=== PATIENT | male | born 1975 | race Caucasian/White ===

== ENCOUNTER 2018-03-21 17:08 | Emergency (ER) | payer BC ==
[2018-03-21] MEDS ORDERED: LISI-362 PO (17:16)
[2018-03-21] MEDS ORDERED: LORA10CA3 PO (17:16)
[2018-03-21] MEDS ORDERED: MONT10TA PO (17:16)
--- NOTE | 2018-03-21 17:18 | ER Report ---
History and Physical Time Seen By MD: 17:18 Hx. of Stated Complaint: RT SIDE PAIN, MOSTLY FLANK BUT SOME ABDOMINAL PAIN. HX OF KIDNEY STONES. STATES THIS ONE DOES NOT FEEL LIKE THE OTHER STONES HPI/ROS CHIEF COMPLAINT: Right-sided abdominal pain HISTORY OF PRESENT ILLNESS: 43-year-old male patient presents to emergency room with complaint of right-sided abdominal pain. Patient states this been going on for the last several days. He states that it seemed to start in back. He states that the pain with then migrates to the right lower quadrant. He states that sometimes it has started the right lower quadrant and migrated to the back. Patient denies having any fevers, chills. Patient states that he is had kidney stones in the past, but this does feel different. He states she's not had any abdominal surgeries and does have his appendix and gallbladder. Patient states he's been able to eat and drink without any difficulties. Patient states he's not had anything to eat today. He has not taken any medication for this. He currently rates his pain an 8-9 out of 10. REVIEW OF SYSTEMS: Respiratory: No cough, no dyspnea. Cardiovascular: No chest pain, no palpitations. Gastrointestinal: As noted above Musculoskeletal: No back pain. Allergies: Coded Allergies: No Known Drug Allergies (Unverified , 03/21/18) Home Meds Active Scripts Tramadol Hcl (TRAMADOL HCL) 50 Mg Tablet, 50 MG PO Q4-6H Y for PAIN, #14 TAB Prov:CINDA HORAN [employer] 03/21/18 Reported Medications Loratadine (CLARITIN) 10 Mg Capsule, 10 MG PO, CAPSULE 03/21/18 Montelukast Sodium (SINGULAIR) 10 Mg Tablet, 1 TAB PO QDAY, TAB 03/21/18 Lisinopril (LISINOPRIL) 10 Mg Tablet, 10 MG PO QDAY, TAB 03/21/18 Past Medical/Surgical History Patient has a past medical history of hypertension, asthma, frequent kidney stones. Patient denies any surgical history. Reviewed Nurses Notes: Yes Constitutional Vital Sign - Last 24 Hours 03/21/18 03/21/18 03/21/18 03/21/18 17:08 17:11 17:14 17:23 Temp 98.2 Pulse ??? 99 83 Resp 14 B/P (MAP) 143/93 145/93 (110) Pulse Ox 90 91 95 O2 Delivery Room Air 03/21/18 03/21/18 03/21/18 03/21/18 17:30 17:38 17:45 17:53 Pulse 91 65 B/P (MAP) 138/94 (109) 127/74 (91) Pulse Ox 95 94 03/21/18 03/21/18 03/21/18 03/21/18 18:00 18:08 18:13 18:15 Pulse ? B/P (MAP) ???/??? (1665) 121/75 (90) 03/21/18 03/21/18 03/21/18 03/21/18 18:28 18:30 18:43 18:45 Pulse 66 61 B/P (MAP) 124/76 (92) 127/78 (94) Pulse Ox 98 96 03/21/18 03/21/18 03/21/18 03/21/18 18:50 19:00 19:05 19:15 Pulse 59 66 B/P (MAP) 128/88 (101) 130/93 (105) Pulse Ox 97 99 03/21/18 19:20 Pulse ??? Intake and Output 03/21/18 03/21/18 03/22/18 14:59 22:59 06:59 Intake Total 1000 ml Balance 1000 ml Physical Exam General Appearance: The patient is alert, has no immediate need for airway protection and no current signs of toxicity. Respiratory: Chest is non tender, lungs are clear to auscultation. Cardiac: regular rate and rhythm Gastrointestinal: Abdomen is soft and tender in the right lower quadrant, no masses, bowel sounds normal. Musculoskeletal: Neck: Neck is supple and non tender. Extremities have full range of motion and are non tender. Skin: No rashes or lesions. DIFFERENTIAL DIAGNOSIS: After history and physical exam differential diagnosis was considered for abdominal pain including but not limited to appendicitis, cholecystitis, gastritis and urinary tract infection. Medical Decision Making Data Points Result Diagram: 03/21/18 1727 03/21/18 1727 Laboratory Hematology Test 03/21/18 13:15 03/21/18 17:27 Urine Color Yellow Urine Clarity Clear Urine pH 6.0 pH (4.8-9.5) Urine Specific [place] 1.021 Urine Protein Negative mg/dL (NEGATIVE) Urine Glucose (UA) Negative mg/dL (NEGATIVE) Urine Ketones Negative mg/dL (NEGATIVE) Urine Blood Negative (NEGATIVE) Urine Nitrite Negative (NEGATIVE) Urine Bilirubin Negative (NEGATIVE) Urine Urobilinogen 2.0 mg/dL (0.2-1.9) Urine Leukocyte Esterase Negative (NEGATIVE) Urine RBC None /HPF (0-2/HPF) Urine WBC 1 /HPF (0-5/HPF) Urine Squamous Epithelial Cells Few /LPF (</=FEW) Urine Bacteria Negative /HPF (NONE-FEW) Urine Mucus None /HPF (NONE-FEW) Red Blood Count 5.67 M/uL (4.00-5.60) Mean Corpuscular Volume 92.1 fL (80.0-96.0) Mean Corpuscular Hemoglobin 33.6 pg (26.0-33.0) Mean Corpuscular Hemoglobin Concent 36.5 g/dL (32.0-36.0) Red Cell Distribution Width 12.9 % (11.5-14.5) Mean Platelet Volume 8.9 fL (7.2-11.1) Neutrophils (%) (Auto) 58.8 % (39.4-72.5) Lymphocytes (%) (Auto) 28.1 % (17.6-49.6) Monocytes (%) (Auto) 8.6 % (4.1-12.4) Eosinophils (%) (Auto) 3.6 % (0.4-6.7) Basophils (%) (Auto) 0.9 % (0.3-1.4) Nucleated RBC Relative Count (auto) 0.1 /100WBC Neutrophils # (Auto) 5.4 K/uL (2.0-7.4) Lymphocytes # (Auto) 2.6 K/uL (1.3-3.6) Monocytes # (Auto) 0.8 K/uL (0.3-1.0) Eosinophils # (Auto) 0.3 K/uL (0.0-0.5) Basophils # (Auto) 0.1 K/uL (0.0-0.1) Nucleated RBC Absolute Count (auto) 0.00 K/uL Sodium Level 138 mmol/L (137-145) Potassium Level 3.9 mmol/L (3.5-5.0) Chloride Level 98 mmol/L (98-107) Carbon Dioxide Level 31 mmol/L (22-30) Blood Urea Nitrogen 16 mg/dl (9-21) Creatinine 1.10 mg/dl (0.66-1.25) Glomerular Filtration Rate Calc > 60.0 Random Glucose 101 mg/dl (75-110) Calcium Level 9.7 mg/dl (8.4-10.2) Total Bilirubin 0.6 mg/dl (0.2-1.3) Aspartate Amino Transf (AST/SGOT) 36 U/L (0-35) Alanine Aminotransferase (ALT/SGPT) 72 U/L (0-56) Alkaline Phosphatase 77 U/L (0-126) Total Protein 6.0 gm/dl (6.3-8.2) Albumin 4.2 g/dl (3.5-5.0) Amylase Level 76 U/L (0-110) Lipase 66 U/L (23-300) Chemistry Test 03/21/18 13:15 03/21/18 17:27 Urine Color Yellow Urine Clarity Clear Urine pH 6.0 pH (4.8-9.5) Urine Specific [place] 1.021 Urine Protein Negative mg/dL (NEGATIVE) Urine Glucose (UA) Negative mg/dL (NEGATIVE) Urine Ketones Negative mg/dL (NEGATIVE) Urine Blood Negative (NEGATIVE) Urine Nitrite Negative (NEGATIVE) Urine Bilirubin Negative (NEGATIVE) Urine Urobilinogen 2.0 mg/dL (0.2-1.9) Urine Leukocyte Esterase Negative (NEGATIVE) Urine RBC None /HPF (0-2/HPF) Urine WBC 1 /HPF (0-5/HPF) Urine Squamous Epithelial Cells Few /LPF (</=FEW) Urine Bacteria Negative /HPF (NONE-FEW) Urine Mucus None /HPF (NONE-FEW) White Blood Count 9.2 k/uL (4.5-11.0) Red Blood Count 5.67 M/uL (4.00-5.60) Hemoglobin 19.1 g/dL (14.0-18.0) Hematocrit 52.2 % (42.0-52.0) Mean Corpuscular Volume 92.1 fL (80.0-96.0) Mean Corpuscular Hemoglobin 33.6 pg (26.0-33.0) Mean Corpuscular Hemoglobin Concent 36.5 g/dL (32.0-36.0) Red Cell Distribution Width 12.9 % (11.5-14.5) Platelet Count 251 K/uL (150-450) Mean Platelet Volume 8.9 fL (7.2-11.1) Neutrophils (%) (Auto) 58.8 % (39.4-72.5) Lymphocytes (%) (Auto) 28.1 % (17.6-49.6) Monocytes (%) (Auto) 8.6 % (4.1-12.4) Eosinophils (%) (Auto) 3.6 % (0.4-6.7) Basophils (%) (Auto) 0.9 % (0.3-1.4) Nucleated RBC Relative Count (auto) 0.1 /100WBC Neutrophils # (Auto) 5.4 K/uL (2.0-7.4) Lymphocytes # (Auto) 2.6 K/uL (1.3-3.6) Monocytes # (Auto) 0.8 K/uL (0.3-1.0) Eosinophils # (Auto) 0.3 K/uL (0.0-0.5) Basophils # (Auto) 0.1 K/uL (0.0-0.1) Nucleated RBC Absolute Count (auto) 0.00 K/uL Glomerular Filtration Rate Calc > 60.0 Calcium Level 9.7 mg/dl (8.4-10.2) Total Bilirubin 0.6 mg/dl (0.2-1.3) Aspartate Amino Transf (AST/SGOT) 36 U/L (0-35) Alanine Aminotransferase (ALT/SGPT) 72 U/L (0-56) Alkaline Phosphatase 77 U/L (0-126) Total Protein 6.0 gm/dl (6.3-8.2) Albumin 4.2 g/dl (3.5-5.0) Amylase Level 76 U/L (0-110) Lipase 66 U/L (23-300) Urinalysis Test 03/21/18 13:15 Urine Color Yellow Urine Clarity Clear Urine pH 6.0 pH (4.8-9.5) Urine Specific [place] 1.021 Urine Protein Negative mg/dL (NEGATIVE) Urine Glucose (UA) Negative mg/dL (NEGATIVE) Urine Ketones Negative mg/dL (NEGATIVE) Urine Blood Negative (NEGATIVE) Urine Nitrite Negative (NEGATIVE) Urine Bilirubin Negative (NEGATIVE) Urine Urobilinogen 2.0 mg/dL (0.2-1.9) Urine Leukocyte Esterase Negative (NEGATIVE) Urine RBC None /HPF (0-2/HPF) Urine WBC 1 /HPF (0-5/HPF) Urine Squamous Epithelial Cells Few /LPF (</=FEW) Urine Bacteria Negative /HPF (NONE-FEW) Urine Mucus None /HPF (NONE-FEW) EKG/Imaging Imaging EXAMINATION: CT abdomen and pelvis with contrast COMPARISON: None. HISTORY: abdominal pain PROCEDURE: Multiplanar contrast enhanced CT of the abdomen and pelvis with 100 mL intravenous Isovue 370. One of the following dose optimization techniques was utilized in the performance of this exam: Automated exposure control; adjustment of the mA and/or kV according to the patient's size; or use of an iterative reconstruction technique. Specific details can be referenced in the facility's radiology CT exam operational policy. FINDINGS: Visualized thorax: No evidence of acute disease within the visualized lower thorax. Liver: Probable mild hepatic steatosis. Otherwise negative. Gallbladder and biliary system: Negative Spleen: Negative. Pancreas: Negative. Adrenal glands: Negative. Kidneys and bladder: No renal mass or evidence of an obstructive uropathy. Urinary bladder is unremarkable. Vessels: Within normal limits. Bowel and mesentery: Stomach is within normal limits. No small bowel obstruction. Appendix is unremarkable. Small amount of stool within the colon. No bowel or mesenteric inflammation. Pelvic organs: Negative. Lymph nodes: No adenopathy. Free air/free fluid: None. Abdominal wall and osseous structures: Tiny fat-containing umbilical hernia. Bilateral small fat-containing inguinal hernias. Scattered small regions of stranding throughout the subcutaneous soft tissues suggestive of either trauma or subcutaneous injections. No fluid or gas collection. Mild degenerative change throughout the visualized spine. IMPRESSION: 1. No findings of acute disease in the abdomen or pelvis. 2. Nonacute findings as described above. Report Dictated By: Yossi Medley MD at 03/21/2018 6:32 PM Report E-Signed By: Yossi Medley MD at 03/21/2018 6:40 PM ED Course/Re-evaluation ED Course Patient was admitted in exam room, history and physical were obtained. Differential diagnoses were considered. On examination patient had tenderness in the right lower quadrant, lungs are clear, heart was regular. A CBC, CMP, urinalysis, CT scan of abdomen and pelvis were done. Patient had an IV placed and received a liter of normal saline as well as 4 mg of morphine and 4 mg of Zofran. Patient states he did have some improvement in his pain. CBC, CMP and urinalysis were unremarkable. Patient had slightly elevated liver enzymes. I discussed findings with the patient. We will go ahead and discharge patient home at this time. Patient will give him a limited supply of pain medication, he is to follow-up with his primary care provider in the next week. I believe the patient likely has a viral infection of the intestines is causing the pain. Patient and his verbalized understanding and agreement with plan. Decision to Disposition Date: Mar 21, 2018 Decision to Disposition Time: 19:06 Depart Departure Latest Vital Signs Vital Signs Date Time Temp Pulse Resp B/P (MAP) Pulse Ox O2 Delivery O2 Flow Rate FiO2 03/21/18 19:20 ??? 03/21/18 19:15 130/93 (105) 03/21/18 19:05 99 03/21/18 17:11 98.2 14 Room Air Impression: Primary Impression: Abdominal pain Condition: Improved Disposition: HOME OR SELF-CARE New Scripts Tramadol Hcl (TRAMADOL HCL) 50 Mg Tablet 50 MG PO Q4-6H Y for PAIN, #14 TAB Prov: CINDA HORAN 03/21/18 Patient Instructions: Abdominal Pain (ED) Additional Instructions: Increase fluid intake. Clear liquid diet for the next 24-48 hours. After that you may advance diet as tolerated starting with complex carbohydrates ; rice, bread or pasta. Follow up with your primary care provider in the next week. Return to the ER if condition worsens. Problem Qualifiers Primary Impression: Abdominal pain Abdominal location: right lower quadrant Qualified Codes: R10.31 - Right lower quadrant pain CINDA HORAN Mar 21, 2018 17:18
[2018-03-21] MEDS ORDERED: NS(*) 0.9% 1000 ML BAG 1,000 ML IV ONE (17:23)
[2018-03-21] MEDS ORDERED: MORPHINE 2 MG/ML SYR IVP ONE (17:25)
[2018-03-21] MEDS ORDERED: ONDANSETRON 4 MG/2 ML VIAL IVP ONE (17:25)
[2018-03-21 17:35] LABS: PLATELET COUNT, AUTOMATED 251 K/uL (150-450)
[2018-03-21] MEDS ORDERED: IOPAMIDOL 76% 100 ML INFUS BTL 100 ML ONE (17:38)
[2018-03-21] MEDS ORDERED: NS 0.9% 25 ML BAG 25 ML ONE (17:38)
--- NOTE | 2018-03-21 18:45 | RADIOLOGY IMAGING REPORT ---
FACILITY: [facility] PATIENT NAME: Giuseppe Russell : 1975 MR: [id number] V: [id number] EXAM DATE: ORDERING PHYSICIAN: CINDA HORAN TECHNOLOGIST: Location: [facility] [place] Patient: Giuseppe Russell : 1975 Visit/Account:[id number] Date of Sevice: 03/21/2018 EXAMINATION: CT abdomen and pelvis with contrast COMPARISON: None. HISTORY: abdominal pain PROCEDURE: Multiplanar contrast enhanced CT of the abdomen and pelvis with 100 mL intravenous Isovue 370. One of the following dose optimization techniques was utilized in the performance of this exam: Automated exposure control; adjustment of the mA and/or kV according to the patient's size; or use of an iterative reconstruction technique. Specific details can be referenced in the facility's [employer] exam operational policy. FINDINGS: Visualized thorax: No evidence of acute disease within the visualized lower thorax. Liver: Probable mild hepatic steatosis. Otherwise negative. Gallbladder and biliary system: Negative Spleen: Negative. Pancreas: Negative. Adrenal glands: Negative. Kidneys and bladder: No renal mass or evidence of an obstructive uropathy. Urinary bladder is unrema rkable. Vessels: Within normal limits. Bowel and mesentery: Stomach is within normal limits. No small bowel obstruction. Appendix is unrem arkable. Small amount of stool within the colon. No bowel or mesenteric inflammation. Pelvic organs: Negative. Lymph nodes: No adenopathy. Free air/free fluid: None. Abdominal wall and osseous structures: Tiny fat-containing umbilical hernia. Bilateral small fat-cont aining inguinal hernias. Scattered small regions of stranding throughout the subcutaneous soft tissue s suggestive of either trauma or subcutaneous injections. No fluid or gas collection. Mild degenerati ve change throughout the visualized spine. IMPRESSION: 1. No findings of acute disease in the abdomen or pelvis. 2. Nonacute findings as described above. Report Dictated By: Yossi Medley MD at 03/21/2018 6:32 PM Report E-Signed By: Yossi Medley MD at 03/21/2018 6:40 PM WSN:[id number]
[2018-03-21] MEDS ORDERED: TRAM-420 PO (19:05)
[2018-03-21] MEDS ORDERED: traMADol 50 MG TAB TH 2 TAB/BOTTLE PO ONE (19:10)
[2018-03-21 19:15] VITALS: BP 130/93
== END 2018-03-21 19:20 | disposition home or self-care (01) ==
LOC: ER 17:24
DX: R10.31 Right lower quadrant pain (principal)
CPT/HCPCS: 74177; 81001; 82150; 83690; 85025; 96361; 96374; 96375; 99284; C9399; J2270; J2405; J7030; Q9967; 82040; 82247; 82310; 82374; 82435; 82565; 82947; 84075; 84132; 84155; 84295; 84450; 84460; 84520